=== PATIENT | female | born 1975 | race Asian ===

== ENCOUNTER 2017-04-02 10:24 | Day surgery (SDC) | payer OTHER ==
[~2017-04-02] VITALS: Ht 165.1 cm; Wt 56.2 kg
[2017-04-02 11:11] VITALS: BP 105/69
[2017-04-02 16:00] VITALS: BP 124/70
[2017-04-02 16:58] VITALS: BP 140/84
[2017-04-03 14:25] LABS: INTERNAL CONTROL VALID? YES
== END 2017-04-02 17:42 | disposition home or self-care (01) ==
LOC: SDC 10:24
PROVIDERS: Podiatrist Foot & Ankle Surgery
DX: M20.12 Hallux valgus (acquired), left foot (principal); M24.575 Contracture, left foot; M20.42 Other hammer toe(s) (acquired), left foot; D18.03 Hemangioma of intra-abdominal structures; K76.89 Other specified diseases of liver; F17.210 Nicotine dependence, cigarettes, uncomplicated; Z80.41 Family history of malignant neoplasm of ovary; Z80.1 Family history of malignant neoplasm of trachea, bronchus and lung; Z83.3 Family history of diabetes mellitus
CPT/HCPCS: 84703; C1713; C1769; J0690; J1170; J2250; J3010; S0020